=== PATIENT | female | born 1995 | race Caucasian/White ===

== ENCOUNTER 2022-04-12 08:40 | Inpatient (IN) | payer OTHER ==
[~2022-04-12] VITALS: Ht 157.5 cm; Wt 84.8 kg
[2022-04-12 09:20] VITALS: BP 111/66
[2022-04-12] MEDS ORDERED: CITRIC ACID/SODIUM CITRATE 30 ML UDC PO SCH (09:20)
[2022-04-12] MEDS ORDERED: METHYLERGONOVINE 0.2 MG/ML AMP IM PRN ×2 (09:20→13:20)
[2022-04-12 10:02] LABS: APPEARANCE,URINE CLEAR (CLEAR); BILIRUBIN,URINE NEGATIVE (NEGATIVE); BLOOD, URINE NEGATIVE (NEGATIVE); COLOR,URINE YELLOW (YELLOW); LEUKOCYTE ESTERASE ,URINE 1+ (NEGATIVE); NITRITE, URINE NEGATIVE (NEGATIVE); UGLUCOSE NEGATIVE (NEGATIVE)
[2022-04-12 10:05] LABS: BASOPHILS # (AUTO) 0.1 K/uL (0.00-0.22); BASOPHILS % (AUTO) 0.8 % (0.0-2.0); EOSINOPHILS % (AUTO) 0.7 % (0.0-4.0); HEMATOCRIT 28.5 % (36-48); HEMOGLOBIN 8.9 g/dL (12.0-16.0); LYMPHOCYTES # (AUTO) 2.1 K/uL (2.5-16.5); LYMPHOCYTES % (AUTO) 31.3 % (20.5-51.1); MEAN CORPUSCULAR HEMOGLOBIN 23 pg (27-31); MEAN CORPUSCULAR HGB CONC 31 g/dL (33-37); MEAN CORPUSCULAR VOLUME 72.2 fL (80-94); MONOCYTES # (AUTO) 0.5 K/uL (0.8-1.0); MONOCYTES % (AUTO) 7.3 % (1.7-9.3); NEUTROPHILS % (AUTO) 59.9 % (42.2-75.2); PLATELET COUNT (AUTO) 318 K/uL (140-450); RED BLOOD CELL COUNT(AUTO) 3.94 MIL/uL (4.20-5.40); RED CELL DISTRIBUTION WIDTH 16.9 % (11.6-13.7); WHITE BLOOD COUNT (AUTO) 6.7 K/uL (4.8-10.8)
[2022-04-12 10:14] LABS: ALBUMIN 2.6 g/dL (3.4-5.0); ANION GAP 13.2 (8-16); CARBON DIOXIDE 20.6 mmol/L (21-32); CREATININE 0.5 mg/dL (0.6-1.3); POTASSIUM 3.8 mmol/L (3.5-5.1)
[2022-04-12 10:15] LABS: PROTHROMBIN TIME 9.3 secs (10.8-13.4)
[2022-04-12 10:30] LABS: TOTAL BILIRUBIN 0.3 mg/dL (0.0-1.0)
[2022-04-12 10:36] LABS: RBC,URINE 0-5 /HPF (0-5)
[2022-04-12 10:37] LABS: OTHER CASTS, URINE None Seen /LPF (None Seen)
--- NOTE | 2022-04-12 10:50 | NUR ---
PATIENT HAS BEEN SCREENED AND CATEGORIZED LOW NUTRITION RISK. PATIENT WILL BE SEEN WITHIN 7 DAYS OF ADMISSION. 04/18/[address]
[2022-04-12] MEDS: LACTATED RINGERS 1,000 ML IV SCH ×2 (11:49→12:47)
[2022-04-12] MEDS ORDERED: OXYTOCIN 20 UNITS/LR PREMIX 1,000 ML IV ONE (12:20)
[2022-04-12] MEDS ORDERED: oxyCODONE/APAP 5/325 MG 1 TAB TAB PO PRN (13:20)
[2022-04-12] MEDS ORDERED: KETOROLAC 30 MG/ML VIAL IVP PRN (13:20)
[2022-04-12] MEDS ORDERED: TEMAZEPAM 15 MG CAP PO PRN (13:20)
[2022-04-12] MEDS ORDERED: MORPHINE PRES FREE 10 MG/10 ML AMP IV ONE (13:26)
[2022-04-12] MEDS ORDERED: MIDAZOLAM 2 MG/2 ML VIAL ONE (14:14)
[2022-04-12] MEDS ORDERED: diphenhydrAMINE 50 MG/ML VIAL IVP PRN (20:00)
[2022-04-12] MEDS ORDERED: NALOXONE 0.4 MG/ML VIAL IVP PRN ×3 (20:00)
[2022-04-12] MEDS ORDERED: NALBUPHINE 10 MG/ML AMP IVP PRN (20:00)
[2022-04-12] MEDS ORDERED: ONDANSETRON 4 MG/2 ML VIAL IVP PRN (20:00)
[2022-04-12] MEDS: OXYTOCIN 20 UNITS in LACTATED RINGERS 1,000 ML IV SCH (20:39)
[2022-04-12] MEDS: DOCUSATE SOD/SENNA 50/8.6 MG 1 TAB PO SCH (21:00)
[2022-04-13] MEDS ORDERED: KETOROLAC 30 MG/ML VIAL IM/IVP SCH
[2022-04-13] MEDS ORDERED: OXYTOCIN 20 UNITS/LR PREMIX 1,000 ML IV ONE (03:42)
[2022-04-13] MEDS: OXYTOCIN 20 UNITS in LACTATED RINGERS 1,000 ML IV SCH (04:46)
[2022-04-13 07:55] LABS: BASOPHILS % (AUTO) 0.3 % (0.0-2.0); EOSINOPHILS % (AUTO) 0.5 % (0.0-4.0); HEMATOCRIT 25.4 % (36-48); HEMOGLOBIN 8.1 g/dL (12.0-16.0); LYMPHOCYTES # (AUTO) 1.9 K/uL (2.5-16.5); LYMPHOCYTES % (AUTO) 22.8 % (20.5-51.1); MEAN CORPUSCULAR HEMOGLOBIN 23 pg (27-31); MEAN CORPUSCULAR HGB CONC 32 g/dL (33-37); MEAN CORPUSCULAR VOLUME 70.7 fL (80-94); MONOCYTES # (AUTO) 0.6 K/uL (0.8-1.0); MONOCYTES % (AUTO) 6.8 % (1.7-9.3); NEUTROPHILS # (AUTO) 5.8 K/uL (1.8-7.7); NEUTROPHILS % (AUTO) 69.6 % (42.2-75.2); PLATELET COUNT (AUTO) 254 K/uL (140-450); RED BLOOD CELL COUNT(AUTO) 3.59 MIL/uL (4.20-5.40); RED CELL DISTRIBUTION WIDTH 17.3 % (11.6-13.7); WHITE BLOOD COUNT (AUTO) 8.3 K/uL (4.8-10.8)
[2022-04-13] MEDS: SIMETHICONE 80 MG TAB.CHEW PO PRN ×3 (08:36→23:11)
[2022-04-13] MEDS: oxyCODONE/APAP 5/325 MG 1 TAB TAB PO PRN ×2 (15:17→20:06)
[2022-04-13] MEDS: IBUPROFEN 800 MG TAB PO PRN (15:44)
[2022-04-13] MEDS: DOCUSATE SOD/SENNA 50/8.6 MG 1 TAB PO SCH (20:07)
[2022-04-14] MEDS: IBUPROFEN 800 MG TAB PO PRN ×2 (01:35→13:08)
== END 2022-04-14 13:50 | disposition home or self-care (01) | DRG 540 ==
LOC: MLD 08:40 → OBSVTOIN 11:09 → MFCC 15:30
PROVIDERS: ADMIT Obstetrics & Gynecology; ATTEND Obstetrics & Gynecology
PROC: 10D00Z1 Extraction of Products of Conception, Low, Open Approach (ICD-10-PCS; principal; 2022-04-12 13:15)
DX: O34.211 Maternal care for low transverse scar from previous cesarean delivery (principal); Z20.822 Contact with and (suspected) exposure to COVID-19; Z37.0 Single live birth; Z3A.38 38 weeks gestation of pregnancy
CPT/HCPCS: 36415; 51702; 80053; 81001; 85025; 85610; 85730; 86592; 86886; 86900; 86901; 87086; J0690; J1885; J2210; J2250; J2270; J2590; J7060

== ENCOUNTER 2023-08-18 14:47 | Observation (INO) | payer OTHER ==
[~2023-08-18] VITALS: Ht 157.5 cm; Wt 83.0 kg
[2023-08-18 16:02] VITALS: BP 118/76; PULSE 109; RESP 18; TEMP 98.4; O2SAT 98
== END 2023-08-18 17:50 | disposition left against medical advice (07) ==
LOC: MLD 14:47
PROVIDERS: ADMIT Obstetrics & Gynecology; ATTEND Obstetrics & Gynecology
DX: O99.891 Other specified diseases and conditions complicating pregnancy (principal); M54.9 Dorsalgia, unspecified; Z3A.37 37 weeks gestation of pregnancy
CPT/HCPCS: G0378

== ENCOUNTER 2023-08-29 07:32 | Inpatient (IN) | payer OTHER ==
[~2023-08-29] VITALS: Ht 157.5 cm; Wt 83.0 kg
[2023-08-29] MEDS ORDERED: CITRIC ACID/SODIUM CITRATE 30 ML UDC PO SCH (07:50)
[2023-08-29] MEDS ORDERED: METHYLERGONOVINE 0.2 MG/ML AMP IM PRN ×2 (07:50→11:45)
[2023-08-29] MEDS: LACTATED RINGERS 1,000 ML IV SCH ×2 (08:21→09:21)
[2023-08-29 08:42] LABS: BASOPHILS % (AUTO) 0.4 % (0.0-2.0); EOSINOPHILS # (AUTO) 0.1 K/uL (0-0.4); EOSINOPHILS % (AUTO) 0.8 % (0.0-4.0); HEMATOCRIT 31.8 % (36-48); HEMOGLOBIN 10.1 g/dL (12.0-16.0); LYMPHOCYTES # (AUTO) 2.3 K/uL (2.5-16.5); LYMPHOCYTES % (AUTO) 32.9 % (20.5-51.1); MEAN CORPUSCULAR HEMOGLOBIN 24 pg (27-31); MEAN CORPUSCULAR HGB CONC 32 g/dL (33-37); MEAN CORPUSCULAR VOLUME 76.6 fL (80-94); MONOCYTES # (AUTO) 0.6 K/uL (0.8-1.0); NEUTROPHILS % (AUTO) 56.9 % (42.2-75.2); PLATELET COUNT (AUTO) 284 K/uL (140-450); RED BLOOD CELL COUNT(AUTO) 4.16 MIL/uL (4.20-5.40); RED CELL DISTRIBUTION WIDTH 17.8 % (11.6-13.7)
[2023-08-29 08:52] LABS: INR 0.88 (0.8-1.2); PARTIAL THROMBOPLASTIN TIME 24.3 secs (22-35.6); PROTHROMBIN TIME 9.3 secs (10.8-13.4)
[2023-08-29 09:03] LABS: HIV RAPID SCREEN NON-REACTIVE (NON REACTIV)
[2023-08-29 09:08] LABS: ALBUMIN 2.5 g/dL (3.4-5.0); ANION GAP 13.2 (8-16); CALCIUM 7.9 mg/dL (8.5-10.1); CARBON DIOXIDE 22.2 mmol/L (21-32); CREATININE 0.6 mg/dL (0.6-1.3); POTASSIUM 3.4 mmol/L (3.5-5.1); TOTAL BILIRUBIN 0.2 mg/dL (0.0-1.0); TOTAL PROTEIN, SERUM 6.8 g/dL (6.4-8.2)
[2023-08-29 09:16] LABS: APPEARANCE,URINE CLEAR (CLEAR); BILIRUBIN,URINE NEGATIVE (NEGATIVE); BLOOD, URINE TRACE-I (NEGATIVE); COLOR,URINE YELLOW (YELLOW); LEUKOCYTE ESTERASE ,URINE 2+ (NEGATIVE); NITRITE, URINE POSITIVE (NEGATIVE); PROTEIN,URINE TRACE (NEGATIVE); UGLUCOSE NEGATIVE (NEGATIVE); UROBILINOGEN,URINE 0.2 EU/dL (0.2 - 1)
[2023-08-29 09:24] LABS: BACTERIA,URINE 2+ /HPF (None Seen); SQUAMOUS EPITHELIAL CELL,UR 50-80 /LPF (0-3 (FEW)); WBC,URINE 20-60 /HPF (0-5)
[2023-08-29] MEDS ORDERED: ceFAZolin 2,000 MG VIAL ONE (11:04)
[2023-08-29] MEDS ORDERED: fentaNYL citrate 0.05 MG/ML VIAL ONE (11:14)
[2023-08-29] MEDS ORDERED: MORPHINE PRES FREE 5 MG/10 ML AMP IV ONE (11:14)
[2023-08-29 11:23] LABS: RAPID PLASMA REAGIN NON-REACTIVE (Non Reactiv)
[2023-08-29] MEDS ORDERED: METOCLOPRAMIDE 10 MG/2 ML INJ VIAL ONE (11:24)
[2023-08-29] MEDS ORDERED: METOCLOPRAMIDE 10 MG/2 ML INJ VIAL IVP PRN (11:25)
[2023-08-29] MEDS ORDERED: TEMAZEPAM 15 MG CAP PO PRN (11:45)
[2023-08-29] MEDS ORDERED: KETOROLAC 30 MG/ML VIAL IVP PRN (11:45)
[2023-08-29] MEDS ORDERED: OXYTOCIN 20 UNITS/LR PREMIX 1,000 ML IV ONE ×2 (12:00→20:32)
[2023-08-29] MEDS ORDERED: PREN-537 PO (13:18)
[2023-08-29] MEDS: DOCUSATE SOD/SENNA 50/8.6 MG 1 TAB PO SCH (21:00)
[2023-08-29] MEDS: OXYTOCIN 20 UNITS in LACTATED RINGERS 1,000 ML IV SCH (21:27)
[2023-08-29] MEDS ORDERED: oxyCODONE/APAP 5/325 MG 1 TAB TAB PO PRN (23:30)
[2023-08-30] MEDS ORDERED: OXYTOCIN 20 UNITS/LR PREMIX 1,000 ML IV ONE (04:45)
[2023-08-30] MEDS: OXYTOCIN 20 UNITS in LACTATED RINGERS 1,000 ML IV SCH (05:25)
[2023-08-30 07:58] LABS: BASOPHILS % (AUTO) 0.2 % (0.0-2.0); EOSINOPHILS % (AUTO) 0.4 % (0.0-4.0); HEMATOCRIT 27.1 % (36-48); HEMOGLOBIN 8.7 g/dL (12.0-16.0); LYMPHOCYTES # (AUTO) 2.7 K/uL (2.5-16.5); LYMPHOCYTES % (AUTO) 23.2 % (20.5-51.1); MEAN CORPUSCULAR HEMOGLOBIN 24 pg (27-31); MEAN CORPUSCULAR HGB CONC 32 g/dL (33-37); MEAN CORPUSCULAR VOLUME 75.3 fL (80-94); MONOCYTES # (AUTO) 0.7 K/uL (0.8-1.0); MONOCYTES % (AUTO) 6.4 % (1.7-9.3); NEUTROPHILS # (AUTO) 8.1 K/uL (1.8-7.7); NEUTROPHILS % (AUTO) 69.8 % (42.2-75.2); PLATELET COUNT (AUTO) 253 K/uL (140-450); RED CELL DISTRIBUTION WIDTH 17.8 % (11.6-13.7); WHITE BLOOD COUNT (AUTO) 11.6 K/uL (4.8-10.8)
[2023-08-30] MEDS: SIMETHICONE 80 MG TAB.CHEW PO PRN ×2 (08:06→12:13)
[2023-08-30] MEDS: IBUPROFEN 800 MG TAB PO PRN ×3 (08:07→23:46)
[2023-08-30] MEDS: oxyCODONE/APAP 5/325 MG 1 TAB TAB PO PRN ×2 (15:47→20:29)
[2023-08-30] MEDS ORDERED: CAMERA MC ONE (19:22)
[2023-08-30] MEDS: DOCUSATE SOD/SENNA 50/8.6 MG 1 TAB PO SCH (20:22)
[2023-08-31] MEDS: oxyCODONE/APAP 5/325 MG 1 TAB TAB PO PRN ×4 (05:29→20:03)
[2023-08-31] MEDS: IBUPROFEN 800 MG TAB PO PRN ×2 (12:16→21:07)
[2023-08-31] MEDS ORDERED: SODIUM FERRIC GLUCONATE 125 MG in NACL 0.9% 100 ML IV SCH (16:00)
[2023-08-31] MEDS: DOCUSATE SOD/SENNA 50/8.6 MG 1 TAB PO SCH (20:04)
[2023-09-01] MEDS: oxyCODONE/APAP 5/325 MG 1 TAB TAB PO PRN ×2 (02:58→08:41)
[2023-09-01] MEDS: SIMETHICONE 80 MG TAB.CHEW PO PRN (03:17)
[2023-09-01] MEDS ORDERED: CAMERA MC ONE (03:42)
== END 2023-09-01 09:50 | disposition home or self-care (01) | DRG 539 ==
LOC: MLD 07:32 → OBSVTOIN 08:56 → MFCC 14:00
PROVIDERS: ADMIT Obstetrics & Gynecology; ATTEND Obstetrics & Gynecology
PROC: 10D00Z1 Extraction of Products of Conception, Low, Open Approach (ICD-10-PCS; principal; 2023-08-29)
PROC: 0UB70ZZ Excision of Bilateral Fallopian Tubes, Open Approach (ICD-10-PCS; 2023-08-29)
DX: O34.211 Maternal care for low transverse scar from previous cesarean delivery (principal); R71.0 Precipitous drop in hematocrit; Z20.822 Contact with and (suspected) exposure to COVID-19; Z37.0 Single live birth; Z3A.38 38 weeks gestation of pregnancy; Z30.2 Encounter for sterilization
CPT/HCPCS: 36415; 80053; 81001; 85025; 85610; 85730; 86592; 86886; 86900; 86901; 87086; 88302; J0690; J2590; J2765; J2916; J3010; J7060

== ENCOUNTER 2023-09-13 18:06 | Emergency (ER) | payer OTHER ==
[~2023-09-13] VITALS: Ht 157.5 cm; Wt 76.7 kg
[~2023-09-13 18:06] MED LIST: PREN-537 PO
[2023-09-13 18:53] VITALS: BP 126/91; PULSE 88; RESP 18; TEMP 99.3; O2SAT 99
[2023-09-13] MEDS ORDERED: KETOROLAC 30 MG/ML VIAL IVP ONE (19:30)
[2023-09-13] MEDS ORDERED: ACETAMINOPHEN EXTRA STRENGTH 500 MG TAB PO ONE (19:30)
[2023-09-13 20:00] LABS: BASOPHILS # (AUTO) 0.1 K/uL (0.00-0.22); BASOPHILS % (AUTO) 1.1 % (0.0-2.0); EOSINOPHILS # (AUTO) 0.1 K/uL (0-0.4); EOSINOPHILS % (AUTO) 2.3 % (0.0-4.0); HEMATOCRIT 38.2 % (36-48); HEMOGLOBIN 12.3 g/dL (12.0-16.0); LYMPHOCYTES # (AUTO) 2.6 K/uL (2.5-16.5); LYMPHOCYTES % (AUTO) 49.4 % (20.5-51.1); MEAN CORPUSCULAR HEMOGLOBIN 25 pg (27-31); MEAN CORPUSCULAR HGB CONC 32 g/dL (33-37); MEAN CORPUSCULAR VOLUME 78.8 fL (80-94); MONOCYTES # (AUTO) 0.4 K/uL (0.8-1.0); NEUTROPHILS # (AUTO) 2.1 K/uL (1.8-7.7); NEUTROPHILS % (AUTO) 40.2 % (42.2-75.2); PLATELET COUNT (AUTO) 498 K/uL (140-450); RED BLOOD CELL COUNT(AUTO) 4.85 MIL/uL (4.20-5.40); RED CELL DISTRIBUTION WIDTH 20.9 % (11.6-13.7); WHITE BLOOD COUNT (AUTO) 5.3 K/uL (4.8-10.8)
[2023-09-13 20:03] LABS: ALBUMIN 3.4 g/dL (3.4-5.0); ANION GAP 12.8 (8-16); ANISOCYTOSIS 2+; CALCIUM 8.6 mg/dL (8.5-10.1); CREATININE 0.8 mg/dL (0.6-1.3); POTASSIUM 3.8 mmol/L (3.5-5.1); TOTAL BILIRUBIN 0.2 mg/dL (0.0-1.0)
[2023-09-13 20:04] LABS: STOMATOCYTES 1+
[2023-09-13 20:05] LABS: POIKILOCYTOSIS 1+; TEAR DROP CELLS 1+
[2023-09-13 20:27] LABS: INR 1.02 (0.8-1.2); PARTIAL THROMBOPLASTIN TIME 26.4 secs (22-35.6); PROTHROMBIN TIME 10.7 secs (10.8-13.4)
[2023-09-13] MEDS ORDERED: IBUPROFEN 400 MG TAB PO ONE (20:45)
[2023-09-13] MEDS ORDERED: ACET-9496 PO (20:50)
[2023-09-13 21:15] VITALS: BP 118/76; PULSE 81; RESP 20; TEMP 98.1; O2SAT 99
== END 2023-09-13 21:15 | disposition home or self-care (01) ==
LOC: MED 18:06
DX: O89.4 Spinal and epidural anesthesia-induced headache during the puerperium (principal); Z79.899 Other long term (current) drug therapy
CPT/HCPCS: 36415; 80053; 85025; 85610; 85730; 99283; J1885